=== PATIENT | female | born 1985 | race African-American/Black ===

== ENCOUNTER 2019-11-17 13:01 | Inpatient (IN) | payer OTHER ==
[2019-11-17 14:06] VITALS: BMI 31.2
--- NOTE | 2019-11-17 16:06 | HP ---
CIWA Score Nausea/Vomitin-Mild Nausea/No Vomiting Muscle Tremors: 1-None Visible, but [place] Anxiety: 1-Mildly Anxious Agitation: 1-Slight > Activity Paroxysmal Sweats: 1-Minimal Palms Moist Orientation: 0-Oriented Tacttile Disturbances: 1-Very Mild Itch/Numbness Auditory Disturbances: 0-None Visual Disturbances: 0-None Headache: 0-None Present CIWA-Ar Total Score: 6 - Admission Criteria OASAS Guidelines: Admission for Medically Managed Detox: Requires at least one of the followin. CIWA greater than 12 2. Seizures within the past 24 hours 3. Delirium tremens within the past 24 hours 4. Hallucinations within the past 24 hours 5. Acute intervention needed for co occurring medical disorder 6. Acute intervention needed for co occurring psychiatric disorder 7. Severe withdrawal that cannot be handled at a lower level of care (continued vomiting, continued diarrhea, abnormal vital signs) requiring intravenous medication and/or fluids 8. Admitting History and Physical - Admission History of Present Illness: 34 year old female with history of alcohol dependence. She drinks 1/2 pint of vodka daily and last drank early this morning. She is using ecstasy 5 per day and last used 2 days ago. She smokes marijuana 1/2 oz per day and last used this morning. Her breathalyzer was zero but she feels she needs a structured environment to remain abstinent. She feels that if she doesn't have money she does stupid things and has lapses in judgment. She wants to get clean to go back to work. SHx: She smokes ciggarettes about 5 per day and smoking since 13 years old. She is a employment security officer and grounds/maintenance specialist. Psych: Bipolar disorder on lithium in the past. She does not feel manic or depressed. Not having any suicidal ideations or plans. Meds: None History Source: Patient Limitations to Obtaining History: No Limitations - Past Medical History Gastrointestinal: Yes: GERD Psych: Yes: Bipolar - Past Surgical History Past Surgical History: Yes: None Admission [facility] Allergies/Adverse Reactions: Allergies Allergy/AdvReac Type Severity Reaction Status Date / Time No Known Allergies Allergy Verified 11/17/19 13:59 - Ebola screening Have you traveled outside of the country in the last 21 days: No (N) Have you had contact with anyone from an Ebola affected area: No Have you been sick,other than usual withdrawal symptoms: No Do you have a fever: No - Review of Systems EENT: reports: No Symptoms Reported Respiratory: reports: No Symptoms reported Cardiac: reports: No Symptoms Reported GI: reports: No Symptoms Reported : reports: No Symptoms Reported Musculoskeletal: reports: No Symptoms Reported Integumentary: reports: No Symptoms Reported Neuro: reports: No Symptoms reported Endocrine: reports: No Symptoms Reported Hematology: reports: No Symptoms Reported Psychiatric: reports: Judgement Intact, Mood/Affect Appropiate, Orientated x3 Other Systems: Reviewed and Negative Patient History - Patient Medical History Hx Anemia: No Hx Asthma: No Hx Chronic Obstructive Pulmonary Disease (COPD): No Hx Cancer: No Hx Cardiac Disorders: No Hx Congestive Heart Failure: No Hx Hypertension: No Hx Hypercholesterolemia: No Hx Pacemaker: No HX Cerebrovascular Accident: No Hx Seizures: No Hx Dementia: No Hx Diabetes: No Hx Gastrointestinal Disorders: Yes Hx Liver Disease: No Hx Genitourinary Disorders: No Hx Sexually Transmitted Disorders: No Hx Renal Disease (ESRD): No Hx Thyroid Disease: No Hx Human Immunodeficiency Virus (HIV): No Hx Hepatitis C: No Hx Depression: No Hx Suicide Attempt: No Hx Bipolar Disorder: No Hx Schizophrenia: No - Patient Surgical History Past Surgical History: No - PPD History Previous Implant?: Yes Documented Results: Negative w/o proof Implanted On Prior R Admission?: No Date: 11/04/18 Results: negative PPD to be Administered?: Yes - Smoking Cessation Smoking history: Current every day smoker Have you smoked in the past 12 months: Yes Hx Chewing Tobacco Use: No Initiated information on smoking cessation: Yes 'Breaking Loose' booklet given: 11/17/19 - Substance & Tx. History Hx Alcohol Use: Yes (1/2 pint) Substance Use Type: Alcohol, Marijuana - Substances abused Ectasy Substance route: Oral Frequency: 1-2 times per week Amount used: $100 Age of first use: 17 Date of last use: 11/12/19 Alcohol Substance route: Oral Frequency: Daily Amount used: vodka- 1/2 pint Age of first use: 13 Date of last use: 11/16/19 Marijuana/Hashish Substance route: Smoking Frequency: Daily Amount used: $5 Age of first use: 12 Date of last use: 11/17/19 Admission Physical Exam BHS - Vital Signs Vital Signs: Vital Signs - 24 hr 11/17/19 13:53 Temperature 97.8 F Pulse Rate 88 Respiratory 19 Rate Blood Pressure 127/74 - Physical General Appearance: Yes: No Apparent Distress, Nourished, Appropriately Dressed HEENTM: Yes: EOMI, Hearing grossly Normal, Normal ENT Inspection, Normocephalic , Normal Voice, LARRY, Pharynx Normal, Tm's normal Respiratory: Yes: Chest Non-Tender, Lungs Clear, Normal Breath Sounds, No Respiratory Distress, No Accessory Muscle Use Neck: Yes: No masses,lesions,Nodules Breast: Yes: Breast Exam Deferred Cardiology: Yes: Regular Rhythm, Regular Rate, S1, S2 Abdominal: Yes: Normal Bowel Sounds, Non Tender, Soft, Protuberent Genitourinary: Yes: Within Normal Limits Back: Yes: Normal Inspection Musculoskeletal: Yes: Within Normal Limits, full range of Motion, Gait Steady, Pelvis Stable Extremities: Yes: Normal Capillary Refill, Normal Inspection, Normal Range of Motion, Non-Tender Neurological: Yes: automotive engineer II-XII NML intact, Fully Oriented, Alert, Motor Strength 5/5, Normal Mood/Affect, Normal Response Integumentary: Yes: Normal Color, Warm Lymphatic: Yes: Within Normal Limits - Diagnostic (1) Alcohol dependence Current Visit: Yes Status: Acute (2) Ecstasy abuse Current Visit: Yes Status: Acute (3) Nicotine dependence Current Visit: Yes Status: Acute (4) History of bipolar disorder Current Visit: Yes Status: Acute Cleared for Admission [facility] - Detox or Rehab [facility] Level of Care: Medically Supervised Claeared for Rehab Admission: Yes Screened but not Admitted - Documentation of Visit Screened but not Admitted: No Inpatient Rehab Admission - Rehab Decision to Admit Inpatient rehab admission?: Yes - Initial Determination Are CD services needed?: Yes Free of communicable disease: Yes Not in need of hospitalization: Yes - Rehab Admission Criteria Previous failed treatment: Yes Poor recovery environment: Yes Comorbidities: Yes Lacks judgement: Yes Patient is meeting Inpatient Rehab admission criteria:: No
[2019-11-17] MEDS ORDERED: LOPERAMIDE HCL 2 MG CAPSULE PO PRN (16:29)
[2019-11-17] MEDS ORDERED: IBUPROFEN 400 MG TABLET (FP) PO PRN (16:29)
[2019-11-17] MEDS ORDERED: MAGNESIUM HYDROX 2400MG/30ML ORAL SUSPENSION 30 ML CUP PO PRN (16:29)
[2019-11-17] MEDS ORDERED: MAGNESIUM CITRATE 300 ML BOTTLE PO PRN (16:29)
[2019-11-17] MEDS ORDERED: P-EPHED 60MG/TRIPROLIDI 2.5MG TABLET PO PRN (16:29)
[2019-11-17] MEDS ORDERED: guaiFENesin 200 MG/10 ML 10 ML UNIT-DOSE CUPS PO PRN (16:29)
[2019-11-17] MEDS ORDERED: MAG HYDROX/AL HYDROX/SIMETH 30 ML UNIT-DOSE CUP PO PRN (16:29)
[2019-11-17] MEDS ORDERED: MENTHOL/PHENOL 1 EACH UD MM PRN (16:29)
[2019-11-17] MEDS ORDERED: MELATONIN 5 MG TABLETS PO PRN (22:00)
[2019-11-17] MEDS ORDERED: THIAMINE HCL 100 MG TABLET (FP) PO SCH (22:00)
[2019-11-18] MEDS: ACETAMINOPHEN 325 MG TABLET (FP) PO PRN ×2 (05:55→14:29)
[2019-11-18 07:18] VITALS: BP 99/63; PULSE 70
[2019-11-18] MEDS ORDERED: PRENATAL VITAMINS W/ FOLIC ACID TABLET (FP) PO SCH (10:00)
[2019-11-18] MEDS ORDERED: NICOTINE 7 MG/24 HOURS TOPICAL PATCH TD SCH (10:00)
[2019-11-18] MEDS ORDERED: COLLOIDAL OATMEAL 1 BAR EACH TP PRN (11:23)
[2019-11-18] MEDS ORDERED: TOLNAFTATE 1% CREAM 15 GM TUBE TP SCH (11:30)
[2019-11-18] MEDS ORDERED: FLU VACCINE QUAD 60 MCG/0.5 ML (MDV 19-20) IM ONE (12:00)
[2019-11-18] MEDS ORDERED: PNEUMOCOCCAL 23 VACCINE 0.5 ML VIAL IM ONE (12:00)
[2019-11-18] MEDS ORDERED: PNEUMOC 13-VAL CONJ-DIP CRM/PF 0.5 ML DISP.SYRIN IM ONE (12:00)
[2019-11-18 15:13] VITALS: TEMP 99.3
--- NOTE | 2019-11-18 17:02 | CONSULT ---
[facility] Psychiatric Consult - Data Date of interview: 11/18/19 Admission source: [facility] Identifying data: First admission to [facility] for this 34 y/o AA female self- referred for rehabilitation treatment. Direct admission to [facility]. SOFIA issues : cannabis, alcohol, ecstasy, nicotine. Patient is single, mother of four , domiciled, unemployed and supported on SSI benefits. Substance Abuse History: Patient declines to discuss her addictions. Information taken from [facility] report as follows : Smoking history: Current every day smoker. Have you smoked in the past 12 months: Yes. Hx Chewing Tobacco Use : No. Initiated information on smoking cessation: Yes. 'Breaking Loose' booklet given: 11/17/19. - Substance & Tx. History. Hx Alcohol Use: Yes (1/2 pint). Substance Use Type: Alcohol, Marijuana. - Substances abused. Ectasy. Substance route: Oral. Frequency: 1-2 times per week. Amount used: $ 100. Age of first use: 17. Date of last use: 11/12/19. Alcohol. Substance route: Oral. Frequency: Daily. Amount used: vodka- 1/2 pint. Age of first use: 13. Date of last use: 11/16/19. Marijuana/Hashish. Substance route: Smoking. Frequency: Daily. Amount used: $5. Age of first use : 12. Date of last use: 11/17/19 Medical History: Information taken from chart. Patient is agitated. Paranoid. Declines to provide information. GERD as per H+P report. Psychiatric History: Patient reports a history of psychiatric hospitalizations. She is an unpredictable, agitated, disorganized and intimidating historian. Ms Barbosa is pacing in the interview room, gesticulating, yelling for no apparent reason and talking incoherently. She refuses to answers questions, claiming that " someone has frozen my brain and put something in there ". Interview had to be stopped in view of patient's escalating behavior. Physical/Sexual Abuse/Trauma History: No information. Additional Comment: Toxicology not available for review. Mental Status Exam - Mental Status Exam Alert and Oriented to: Time, Place, Person Cognitive Function: Impaired Patient Appearance: Unkempt, Disheveled (tall, imposing physical frame; tattoos seen on neck) Mood: Angry, Hostile, Irritable Affect: Blunted Patient Behavior: Inappropriate, Uncooperative, Suspicious, Agitated Speech Pattern: Excessive, Perseverating (about being harassed by people, being controlled by others) Voice Loudness: Severely Loud (observed taling loud, addressing the TV in the day room) Thought Process: Flight of Ideas, Disorganized Thought Disorder: Present, Being Controlled, Paranoid Ideation, Bizarre, Delusional (about people placing vodoo spells on her and " poking " her with needles ) Insight/Judgement: Poor Sleep: Poorly Appetite: Good Gait/Station: Normal Psychiatric Findings - Problem List ([place] 1, 2,3) (1) Psychotic disorder Current Visit: Yes Status: Acute (2) [place] Current Visit: Yes Status: Suspected (3) Alcohol dependence Current Visit: Yes Status: Acute (4) Ecstasy abuse Current Visit: Yes Status: Acute (5) History of bipolar disorder Current Visit: Yes Status: Chronic (6) Nicotine dependence Current Visit: Yes Status: Acute (7) Non compliance w medication regimen Current Visit: Yes Status: Chronic - Initial Treatment Plan Initial Treatment Plan: Interviewer is not able to obtain a comprehensive history from the patient due to agitation, acute paranoia and thought disorganization. Patient is bizarre, easily provoked, hypervigilant, incoherent , restless and potentiallly aggressive to others. Determination of percetual disturbances and suicidal/homicidal ideation, intent or plan : not able to assess due to this patient's uncooperativeness. However, her unpredictable behavior is clearly indicative of potential for violence. No information is available about her current medications or pattern of compliance. Ms Barbosa is acutely psychotic. She is NOT suitable for treatment in this setting (inpatient rehabilitation unit for patient with SOFIA issues). Transfer to a psychiatric institution has become necessary for safety. Case discussed via telephone with psychiatrist-information support project manager, Dr Lopez ([phone]). Case accepted. Patient is going to be transferred to the psychiatric section of the emergency department at [facility]. Converted to 2 PC status. Transfer will be secured via 911 services : EMS + [employer]. Discussed with nurses on duty.
--- NOTE | 2019-11-18 20:09 | PN ---
[facility] Progress Note Note: please refer to note and consultation patient has bizarre behavior,disorganization,aggressive behavior,uncooperative, present the threat to others,and potential violence concurred with for the need of emergency Psychiatric care ,treatment and evaluation at psychiatric facility patient transferred to [facility] secured by 911 EMS and [employer] miss Pham nursing rail gang supervisor aware
[2019-11-18 21:44] LABS: URINE APPEARANCE CLEAR; URINE BILIRUBIN NEGATIVE (NEGATIVE); URINE COLOR YELLOW; URINE GLUCOSE (UA) NEGATIVE (NEGATIVE); URINE KETONE NEGATIVE (NEGATIVE); URINE LEUK ESTERASE NEGATIVE (NEGATIVE); URINE NITRITE NEGATIVE (NEGATIVE); URINE PROTEIN NEGATIVE (NEGATIVE); URINE UROBILINOGEN 0.2 mg/dL (0.2-1.0)
--- NOTE | 2019-11-19 09:09 | DS ---
[facility] Rehab Discharge Summary - [facility] Rehab Discharge Summary Admission Date: 11/17/19 Discharge Date: 11/19/19 - History Pertinent Past History: bipolar disorder - Discharge Physical Exam Vital Signs: Vital Signs Temperature 99.3 F 11/18/19 15:00 Pulse Rate 70 11/18/19 07:17 Respiratory Rate 18 11/18/19 07:17 Blood Pressure 99/63 11/18/19 07:17 O2 Sat by Pulse Oximetry (%) Pertinent Admission Physical Exam Findings: Vital Signs Temperature 99.3 F 11/18/19 15:00 Pulse Rate 70 11/18/19 07:17 Respiratory Rate 18 11/18/19 07:17 Blood Pressure 99/63 11/18/19 07:17 O2 Sat by Pulse Oximetry (%) - Medication Discharge Medications: Ambulatory Orders NK [No Known Home Medication] 11/17/19 - Discharge Instructions Diet, activity, other medical instructions: Diet: Activity: Other medical instructions: - Diagnosis (1) Alcohol dependence Status: Acute (2) Ecstasy abuse Status: Acute (3) Nicotine dependence Status: Acute (4) Psychotic disorder Status: Acute (5) History of bipolar disorder Status: Chronic (6) Non compliance w medication regimen Status: Chronic - AMA Did Patient Leave Against Medical Advice: No Additional Comments: patient transferred to [facility] for Psychiatric treatment,please refer to Dr. Mak consultation's note
[2019-11-19] MEDS ORDERED: FLU VACCINE QUAD 60 MCG/0.5 ML (MDV 19-20) IM ONE (12:00)
[2019-11-19] MEDS ORDERED: PNEUMOCOCCAL 23 VACCINE 0.5 ML VIAL IM ONE (12:00)
== END 2019-11-18 20:42 | DRG 775 ==
LOC: YASAS 13:01 → Y3E 16:46
PROVIDERS: ADMIT Neuromusculoskeletal Medicine & OMM; ATTEND Neuromusculoskeletal Medicine & OMM
PROC: HZ2ZZZZ Detoxification Services for Substance Abuse Treatment (ICD-10-PCS; principal; 2019-11-17)
DX: F10.230 Alcohol dependence with withdrawal, uncomplicated (principal); F16.10 Hallucinogen abuse, uncomplicated; F17.210 Nicotine dependence, cigarettes, uncomplicated; F99 Mental disorder, not otherwise specified; F30.9 Manic episode, unspecified; K21.9 Gastro-esophageal reflux disease without esophagitis
CPT/HCPCS: 81003